=== PATIENT | female | born 1955 | race Caucasian/White ===

== ENCOUNTER 2018-10-25 08:46 | Inpatient (IN) | payer OTHER ==
--- NOTE | 2018-10-25 08:52 | EDPHY ---
General - History Smoking Status: Never smoked Time Seen by Provider: 10/25/18 08:52 Narrative: CLINICAL IMPRESSION: Distal femur fracture ASSESSMENT/PLAN: Patient is a 63-year-old female with a significant history of diabetes and hypertension who presents with complaint of left knee pain after sustaining a mechanical fall, brought in by EMS with concern for knee dislocation. Patient is nontoxic-appearing however is very uncomfortable appearing on arrival. Knee x-ray reveals displaced, comminuted distal femur fracture. There was no evidence of compartment syndrome and she was neurovascularly intact distally. Her history and physical examination is most consistent with comminuted, displaced distal femur fracture. Orthopedic surgery was consulted, spoke directly with Dr. Garcia. Patient will be admitted for surgical intervention , she will be admitted to the hospitalist service. I also spoke with MANAGER MASSAGE DEPARTMENT Bushra Betancourt, the patient will be admitted to Dr. Mcneal. Preop laboratory studies were obtained as well as a CXR and ECG; pending. ECG with no acute abnormalities or evidence of acute ischemia. As per the request of Dr. Garcia , the femur was reduced and placed in immobilization. CMS remained intact post splint placement. Repeat x-ray revealed better alignment however still displaced. No further skin tenting. DIFFERENTIAL DX: Knee injury after slipping on the ice including but not limited to fracture, ACL injury, contusion, muscular strain, and meniscus injury. ED COURSE: 910: Xrays reviewed by Dr. Jung 918: Case discussed with Orthopedic Surgery Dr. Garcia Procedure: Facture reduction. The left femur was reduced in the usual fashion without complications. Post reduction the patient's neurovascular exam is normal. The procedure was performed by myself and Dr. Jung. CHIEF COMPLAINT: Left knee pain HPI: Patient is a 63-year-old female with a history of diabetes and hypertension brought in by ambulance after sustaining a left knee injury. Patient reports she slipped on the ice, felt that her lower part of her left leg went [address] and the upper part of her left leg went the other way. She fell directly onto her knee and feels that it either dislocated her broke. Patient denies hitting her head, there was no loss of consciousness. She denies any neck or back pain. She denies any hip, ankle or foot pain. She denies any numbness or tingling of the extremity. No history of injury or arthroplasty to this knee. Denies any other complaints. Had coffee with powdered cream approximately an hour and half prior to arrival, last solid intake yesterday evening. PAST MEDICAL HISTORY: Hypertension, diabetes Family History: Noncontributory Social History: Denies illicit drug use ROS: A full 10 point review of systems was negative except for those mentioned in HPI. PHYSICAL EXAM: General Appearance: Obese, very uncomfortable appearing however not toxic- appearing. HEENT: Normocephalic, atraumatic. TMs are clear bilaterally no hemotympanum bilaterally. Oropharynx clear is no erythema or exudates, no tonsillar hypertrophy or asymmetry. Dentition without abnormality. Eyes: PERRLA, no acute vision change, nystagmus, swelling, discharge, pain or photosensitivity. Conjunctiva pink, no pallor or injection Neck: Supple, nontender, no lymphadenopathy, no midline pain, FROM, no meningismus. Respiratory: There are no retractions, lungs are clear to auscultation. Cardiac: Regular rate and rhythm, no murmurs or gallops. Gastrointestinal: Abdomen is soft, nontender, bowel sounds normal, no masses/ hernia, no rigidity, guarding or focal peritoneal findings. Skin: Warm, dry, no rashes, no nodules on palpation. Upper Extremities: Intact distal pulses, Full range of motion intact, no tenderness, no ecchymosis or edema Lower Extremities: Left thigh compartment is soft, distal femur deformity as well as tenderness to palpation in the generalized distal femur and knee. No open wounds however skin mildly tenting. Left calf is nontender. Left ankle has full range of motion is nontender. Left foot is nontender with full range of motion. Dorsalis pedis and posterior tibialis pulses are 2+. Right lower extremity unremarkable with full range of motion and nontender. MEDICAL DECISION MAKING: Patient was seen independently. Secondary supervising physician at time of evaluation was Dr. Jung. Diagnosis: Displaced, comminuted left distal femur fracture. New, requires workup Summary: See Assessment and Plan for summary of ED visit Clinical lab tests: Yes. Independent visualization of images, tracing, or specimens: Yes. Decision to obtain medical records or history from someone other than the patient: Yes, EMS Review / Summarize previous medical records: No Discussed patient with another provider: Yes, Dr. Jung Patient Progress: Stable, admit. (Tuyet English) 0930: I assessed this patient in conjunction with Samantha English, PAC. We reduced the patient's distal femur fracture at the request of Dr. Garcia, orthopedic surgeon. 50mg IV Ketamine administered after the reduction for pain control. Patient was placed in a knee immobilizer after the reduction. (Mandeep Jung) - Diagnostics Imaging Results: Imaging Impressions Knee X-Ray 10/25/18 08:52 Impression: Comminuted displaced angulated intraarticular distal left femur fracture. Chest X-Ray 10/25/18 09:13 Impression: No evidence for fat embolism. No contraindication to surgery identified. - Objective Vital Signs: Initial Vital Signs Temperature (C) 36.9 C 10/25/18 08:57 Heart Rate 90 10/25/18 08:57 Respiratory Rate 20 10/25/18 08:57 Blood Pressure 199/98 H 10/25/18 08:57 O2 Sat (%) 97 10/25/18 08:57 O2 Delivery Mode Nasal Cannula O2 (L/minute) 2 Allergies/Adverse Reactions: itraconazole [From Sporanox] Allergy (Intermediate, Verified 10/13/14 08:52) BODY RASH metformin Allergy (Intermediate, Verified 10/13/14 08:52) ABD CRAMPING Home Medications: Medication Instructions Recorded Lisinopril [Zestril 40 mg (*)] 40 mg PO DAILY 12/02/14 Insulin Regular Human [Humulin R 7 unit SC HS 10/25/18 100 units/ml (*)] Insulin Regular Human [Humulin R 10 unit SC BID@,12 10/25/18 100 units/ml (*)] Thyroid,Pork [[place] Thyroid] 150 mg PO DAILY 10/25/18 Laboratory Results: Laboratory Results 10/25/18 08:30 10/25/18 08:30 10/25/18 10/25/18 10/25/18 08:30 08:30 08:30 WBC 16.45 10^3/uL H 10^3/uL (3.80-9.50) RBC 4.89 10^6/uL 10^6/uL (4.18-5.33) Hgb 14.7 g/dL g/dL (12.6-16.3) Hct 43.6 % % (38.0-47.0) MCV 89.2 fL fL (81.5-99.8) MCH 30.1 pg pg (27.9-34.1) MCHC 33.7 g/dL g/dL (32.4-36.7) RDW 13.1 % % (11.5-15.2) Plt Count 174 10^3/uL 10^3/uL (150-400) MPV 9.9 fL fL (8.7-11.7) Neut % (Auto) 78.6 % H % (39.3-74.2) Lymph % (Auto) 15.2 % % (15.0-45.0) Glenn % (Auto) 4.9 % % (4.5-13.0) Eos % (Auto) 0.2 % L % (0.6-7.6) Baso % (Auto) 0.3 % % (0.3-1.7) Nucleat RBC Rel Count 0.0 % % (0.0-0.2) Absolute Neuts (auto) 12.94 10^3/uL H 10^3/uL (1.70-6.50) Absolute Lymphs (auto) 2.50 10^3/uL 10^3/uL (1.00-3.00) Absolute Monos (auto) 0.80 10^3/uL 10^3/uL (0.30-0.80) Absolute Eos (auto) 0.03 10^3/uL 10^3/uL (0.03-0.40) Absolute Basos (auto) 0.05 10^3/uL 10^3/uL (0.02-0.10) Absolute Nucleated RBC 0.00 10^3/uL 10^3/uL (0-0.01) Immature Gran % 0.8 % % (0.0-1.1) Immature Gran # 0.13 10^3/uL H 10^3/uL (0.00-0.10) PT 12.1 SEC SEC (12.0-15.0) INR 0.87 (0.83-1.16) APTT 28.4 SEC SEC (23.0-38.0) Sodium 139 mEq/L mEq/L (135-145) Potassium 3.6 mEq/L mEq/L (3.5-5.2) Chloride 100 mEq/L mEq/L (97-110) Carbon Dioxide 26 mEq/l mEq/l (22-31) Anion Gap 13 mEq/L mEq/L (6-14) BUN 16 mg/dL mg/dL (7-23) Creatinine 0.7 mg/dL mg/dL (0.6-1.0) Estimated GFR > 60 Glucose 200 mg/dL H mg/dL (70-100) Calcium 9.4 mg/dL mg/dL (8.5-10.4) Medications Given: Hydromorphone HCl (Dilaudid) 0.2 - 0.4 mg IVP Q4HRS PRN PRN Reason: Pain, Severe Unable to Take PO Stop: 11/04/18 09:48 Last Admin: 10/25/18 13:23 Dose: 0.4 mg Insulin Human Lispro (Humalog Lispro) 0 unit SC TIDMEAL RAY PRN Reason: Protocol Stop: 04/23/19 11:59 Last Admin: 10/25/18 12:36 Dose: 10 units Oxycodone/Acetaminophen (Percocet 5/325) 1 - 2 tab PO Q4HRS PRN PRN Reason: Pain, Severe Able to Take PO Stop: 11/04/18 09:48 Last Admin: 10/25/18 12:40 Dose: 2 tab Discontinued Medications Hydromorphone HCl (Dilaudid) 0.5 mg IVP EDNOW ONE Stop: 10/25/18 09:12 Last Admin: 10/25/18 09:15 Dose: 0.5 mg Ketamine HCl (Ketamine) 50 mg IVP EDNOW ONE Stop: 10/25/18 09:35 Last Admin: 10/25/18 09:34 Dose: 50 mg Ondansetron HCl (Zofran) 4 mg IVP EDNOW ONE Stop: 10/25/18 09:51 Last Admin: 10/25/18 09:51 Dose: 4 mg Departure - Departure Disposition: [facility] Inpatient Acute Clinical Impression: Fracture of distal femur Qualifiers: Encounter type: initial encounter Fracture type: closed Fracture morphology: unspecified fracture morphology Laterality: left Qualified Code(s): S72.402A - Unspecified fracture of lower end of left femur, initial encounter for closed fracture Condition: Good
[2018-10-25] MEDS ORDERED: HYDROmorphONE/DILAUDID 2 MG/ML INJ IVP ONE (09:11)
[2018-10-25] MEDS ORDERED: KETAMINE 200 MG/20 ML VIAL ONE (09:25)
[2018-10-25] MEDS ORDERED: KETAMINE 200 MG/20 ML VIAL IVP ONE (09:34)
[2018-10-25] MEDS ORDERED: ONDANSETRON 4 MG/2 ML VIAL IVP PRN ×3 (09:49→19:22)
[2018-10-25] MEDS ORDERED: ACETAMINOPHEN 325 MG TAB PO PRN (09:49)
[2018-10-25] MEDS ORDERED: ONDANSETRON 4 MG/2 ML VIAL IVP ONE (09:50)
[2018-10-25 09:53] LABS: PLATELET COUNT 174 10^3/uL (150-400)
[2018-10-25 10:06] LABS: INR 0.87 (0.83-1.16); PROTIME(PATIENT) 12.1 SEC (12.0-15.0)
[2018-10-25] MEDS ORDERED: MAGNESIUM HYDROXIDE 30 ML UDCUP PO PRN (11:12)
[2018-10-25] MEDS ORDERED: BISACODYL 10 MG SUPP PR PRN (11:12)
[2018-10-25] MEDS ORDERED: LACTULOSE 20 GM/30 ML UDCUP PO PRN (11:12)
[2018-10-25] MEDS ORDERED: POLYETHYLENE GLYCOL 3350 17 GM PKT PO PRN (11:12)
[2018-10-25] MEDS ORDERED: D50W 25 GM/50 ML SYR IVP PRN (11:12)
--- NOTE | 2018-10-25 12:00 | CPEKG ---
Test Reason : OPEN Blood Pressure : / mmHG Vent. Rate : 093 BPM Atrial Rate : 094 BPM P-R Int : 140 ms QRS Dur : 095 ms QT Int : 350 ms P-R-T Axes : 048 -23 -01 degrees QTc Int : 436 ms Sinus rhythm Borderline left axis deviation Low voltage, precordial leads Confirmed by Mandeep Jung ([id number]) on 10/25/2018 12:00:16 PM Referred By: Mandeep Jung Confirmed By:Mandeep Jung
[2018-10-25] MEDS: INSULIN LISPRO 100 UNIT/ML SC SCH ×2 (12:36→22:37)
[2018-10-25] MEDS: OXYCODONE/APAP 5/325 TAB PO PRN (12:40)
--- NOTE | 2018-10-25 12:48 | PDGENHP ---
History and Physical - Chief Complaint Mechanical fall with injury - History of Present Illness This is a 63 y/o female with history of hypertension and diabetes presenting to the emergency room after sustaining a mechanical fall with injury. This morning, she was walking outside when she slipped on ice. No preceding symptoms to contribute to fall. She landed hard on her left knee - imaging reveals left displaced angulated intraarticular distal comminuted femur fracture. It was reduced and immobilized by emergency room physicians upon request from orthopedic surgeon, Dr. Garcia. Denies chest pains, palpitations , lightheadedness, shortness of breath, nausea, vomiting, fevers and chills. Past Medical History 1. Diabetes 2. Hypertension 3. Hypothyroidism Past Surgical History 1. Hysterectomy 2. Colon resection 3. Right ankle fracture (~30 years ago; broke in 9 places) Social 1. Employed as a Watchstander in [place] 2. Smokes a pack of cigarettes/week. Smokes cannabis usually every day. Denies alcohol use. History Information - Allergies/Home Medication List Allergies/Adverse Reactions: itraconazole [From Sporanox] Allergy (Intermediate, Verified 10/13/14 08:52) BODY RASH metformin Allergy (Intermediate, Verified 10/13/14 08:52) ABD CRAMPING Home Medications: Lisinopril [Zestril 40 mg (*)] 40 mg PO DAILY 12/02/14 [Last Taken 10/25/18] Insulin Regular Human [Humulin R 100 units/ml (*)] 7 unit SC HS 10/25/18 [Last Taken 10/24/18] Insulin Regular Human [Humulin R 100 units/ml (*)] 10 unit SC BID@09,12 [Last Taken 10/25/18] Thyroid,Pork [[place] Thyroid] 150 mg PO DAILY 10/25/18 [Last Taken 10/25/18] I have personally reviewed and updated: family history, medical history, social history, surgical history Past Medical History: See HPI list - Surgical History Additional surgical history: See HPI list - Family History Positive for: cancer, diabetes type II, CAD Additional family history: Kidney disease - Social History Smoking Status: Current every day smoker Tobacco Use: Cigarettes Alcohol Use: None Drug Use: Marijuana Review of Systems Review of Systems: ROS: 10pt was reviewed & negative except for what was stated in HPI & below Constitutional: Reports: recent injury EENMT: Reports: no symptoms Cardiac: Reports: no symptoms Respiratory: Reports: no symptoms Gastrointestinal: Reports: no symptoms Genitourinary: Reports: no symptoms Muscolosketal: Reports: joint pain (L knee), joint swelling, muscle pain Skin: Reports: no symptoms Neurological: Reports: no symptoms Hematologic/Lymphatic: Reports: no symptoms Immunologic/Allergy: Reports: other (Itraconazole, metformin) Physical Exam Physical Exam: Lab data and imaging reviewed CXR: No fat embolism Knee x-ray: see HPI list EKG: SR, 93 bpm WBC: 16.45 BUN/Creatinine: 16/0.7 Temp Pulse Resp BP Pulse Ox 36.7 C 96 18 171/104 H 98 10/25/18 11:35 10/25/18 11:35 10/25/18 11:35 10/25/18 11:35 10/25/18 11:35 O2 (L/minute) 1 Constitutional: no apparent distress, appears nourished, uncomfortable Eyes: PERRL, anicteric sclera, EOMI Ears, Nose, Mouth, Throat: moist mucous membranes, hearing normal, ears appear normal, no oral mucosal ulcers Cardiovascular: regular rate and rhythym, no murmur, rub, or gallop, tachycardia , No edema Peripheral Pulses: 2+: dorsalis-pedis (R) (Radial 2+), dorsalis-pedis (L) ( Radial 2+) Respiratory: no respiratory distress, no rales or rhonchi, clear to auscultation Gastrointestinal: normoactive bowel sounds, soft, non-tender abdomen, no palpable masses Genitourinary: no bladder fullness, no bladder tenderness Skin: warm, normal color, no rashes or abrasions, no fluctuance, no induration, No mottled Musculoskeletal: joint effusion (L knee), pain with ROM Neurologic: AAOx3, sensation intact bilaterally, CN II-XII Intact Psychiatric: interacting appropriately, not anxious, not encephalopathic, thought process linear Lymph, Heme, Immunologic: no cervical LAD, no supraclavicular LAD Lab Data & Imaging Review 10/25/18 08:30 10/25/18 08:30 WBC 16.45 10^3/uL (3.80-9.50) H 10/25/18 08:30 RBC 4.89 10^6/uL (4.18-5.33) 10/25/18 08:30 Hgb 14.7 g/dL (12.6-16.3) 10/25/18 08:30 Hct 43.6 % (38.0-47.0) 10/25/18 08:30 MCV 89.2 fL (81.5-99.8) 10/25/18 08:30 MCH 30.1 pg (27.9-34.1) 10/25/18 08:30 MCHC 33.7 g/dL (32.4-36.7) 10/25/18 08:30 RDW 13.1 % (11.5-15.2) 10/25/18 08:30 Plt Count 174 10^3/uL (150-400) 10/25/18 08:30 MPV 9.9 fL (8.7-11.7) 10/25/18 08:30 Neut % (Auto) 78.6 % (39.3-74.2) H 10/25/18 08:30 Lymph % (Auto) 15.2 % (15.0-45.0) 10/25/18 08:30 Russell % (Auto) 4.9 % (4.5-13.0) 10/25/18 08:30 Eos % (Auto) 0.2 % (0.6-7.6) L 10/25/18 08:30 Baso % (Auto) 0.3 % (0.3-1.7) 10/25/18 08:30 Nucleat RBC Rel Count 0.0 % (0.0-0.2) 10/25/18 08:30 Absolute Neuts (auto) 12.94 10^3/uL (1.70-6.50) H 10/25/18 08:30 Absolute Lymphs (auto) 2.50 10^3/uL (1.00-3.00) 10/25/18 08:30 Absolute Monos (auto) 0.80 10^3/uL (0.30-0.80) 10/25/18 08:30 Absolute Eos (auto) 0.03 10^3/uL (0.03-0.40) 10/25/18 08:30 Absolute Basos (auto) 0.05 10^3/uL (0.02-0.10) 10/25/18 08:30 Absolute Nucleated RBC 0.00 10^3/uL (0-0.01) 10/25/18 08:30 Immature Gran % 0.8 % (0.0-1.1) 10/25/18 08:30 Immature Gran # 0.13 10^3/uL (0.00-0.10) H 10/25/18 08:30 PT 12.1 SEC (12.0-15.0) 10/25/18 08:30 INR 0.87 (0.83-1.16) 10/25/18 08:30 APTT 28.4 SEC (23.0-38.0) 10/25/18 08:30 Sodium 139 mEq/L (135-145) 10/25/18 08:30 Potassium 3.6 mEq/L (3.5-5.2) 10/25/18 08:30 Chloride 100 mEq/L (97-110) 10/25/18 08:30 Carbon Dioxide 26 mEq/l (22-31) 10/25/18 08:30 Anion Gap 13 mEq/L (6-14) 10/25/18 08:30 BUN 16 mg/dL (7-23) 10/25/18 08:30 Creatinine 0.7 mg/dL (0.6-1.0) 10/25/18 08:30 Estimated GFR > 60 10/25/18 08:30 Glucose 200 mg/dL (70-100) H 10/25/18 08:30 POC Glucose 349 mg/dL (70-100) H 10/25/18 12:13 Calcium 9.4 mg/dL (8.5-10.4) 10/25/18 08:30 Assessment & Plan Plan: 63 y/o female presenting with mechanical fall with injury requiring orthopedic interventions. 1. Acute fracture of distal left femur: has been reduced and immobilized in ED per request of Dr. Garcia. Leukocytosis more in relation to an acute reactive response instead of infectious. Afebrile. -Ortho consulted and aware. Dr. Garcia will perform surgical intervention later today. -NPO now -Pain management PO/IVP PRN -NWB LLE for now; will appreciate ortho recommendation for weight bearing status post-op -PT/OT to evaluate and treat -Bowel regimen 2. Hypertension: she reports taking her dose of lisinopril this morning. Continue to monitor BP. 3. Diabetes: on insulin at home. Initiated ISS here, glucose checks TID before meals. 4. Hypothyroidism: she reports taking her dose of [place] this morning. Will continue while she is here in the hospital. 5. Tobacco cessation: counseled pt. Diet: NPO, may ADAT post-operatively VTE ppx: SCDs, anti-coagulants per recommendation from orthopedics Code: Full Dispo: Admit to inpatient
[2018-10-25] MEDS ORDERED: ceFAZolin 2 GM/DEXTROSE 100 ML IV ONE (12:56)
--- NOTE | 2018-10-25 13:19 | GCON ---
[f rep st] CONSULTATION ORTHOPEDIC CONSULTATION DATE OF CONSULTATION: 10/25/2018 REASON FOR CONSULTATION: Left distal femur fracture. HPI: The patient is a 63-year-old female who had a slip and fall on the ice this morning, was lashell t by EMS to [facility] Emergency Department. X-rays were obtained, which showed a disp laced distal femur fracture which was reduced in the emergency department. She has been admitted to the hospitalist due to underlying medical conditions of hypertension and diabetes, and I saw her afte r her admission. Our tentative plan right now is for surgery later this afternoon. PRIOR MEDICAL HISTORY: Hypertension, diabetes. MEDICATIONS: Lisinopril, insulin, [place] Thyroid. ALLERGIES: No known drug allergies. SOCIAL HISTORY: She lives here in [place]. 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 Does not smoke. REVIEW OF SYSTEMS: No loss of consciousness. No shortness of breath. No chest pain. PHYSICAL EXAM: GENERAL: Alert and oriented x3. She is answering questions appropriately. VITAL SI GNS: Blood pressure is 171/104, heart rate 76, respiratory rate is 18, oxygen saturation is 98% on 1 L, temperature is 36.7. LABS: Show hemoglobin of 14.7, hematocrit of 43. Glucose is 349. Otherwi se, chemistries are normal. Coagulation values are within normal limits, as well. HEENT: Normoceph alic, atraumatic. Extraocular muscles are intact. NECK: Supple. There is no lymphadenopathy. No JVD. CHEST: Clear to auscultation. CARDIOVASCULAR: Regular rate and rhythm. ABDOMEN: Soft, nont ge, nondistended. EXTREMITIES: Focusing on the left leg, she has a knee immobilizer in place. H er skin is intact. Thigh compartment is slightly swollen, but soft. Lower extremity compartment is soft, as well. No calf tenderness. She has 5/5 ankle dorsiflexion and plantar flexion strength, 1+ dorsalis pedis and posterior tibial pulses. X-RAYS: Pre- and postreduction films show a comminuted distal femur fracture. There is a split thro ugh the intercondylar notch. ASSESSMENT: Comminuted distal femoral fracture, left, with displacement. PLAN: I recommend proceeding with an open reduction internal fixation of the distal femur fracture. She will be nonweightbearing for 6 weeks postoperatively. She will need 3 weeks of anticoagulation postoperatively, as well. We did talk about the possible need for a rehab setting after the acute ca re stay is over. She understands this. There is a slight chance that she may need a blood transfusi on as well during her admission, although we will do this case under tourniquet. I did explain she c ould lose enough blood from the fractured femur alone to require transfusion. She understands that. Total healing time of 4 to 6 months was also explained to her, and she understands that. We will ke ep her n.p.o., plan on surgery later this afternoon when there is OR availability. /[id number]/MODL
[2018-10-25] MEDS: HYDROmorphONE/DILAUDID 1 MG/ML INJ IVP PRN (13:23)
--- NOTE | 2018-10-25 13:27 | PDMN ---
Medical Necessity Medical necessity: MCG femur fx (sgy pend) pt fell on ice - acute fx of distal L femur - comminuted displaced angulated intra-articular distal femur fx - partially reduced in ED- req surgical intervention.
--- NOTE | 2018-10-25 13:42 | HOSPPROG ---
Hospitalist Progress Note Assessment/Plan: I have personally seen and evaluated patient. I agree with the assessment and plan as outlined by PALiz, in separate documentation. Objective: Vital Signs Temp Pulse Resp BP Pulse Ox 36.7 C 96 18 171/104 H 98 10/25/18 11:35 10/25/18 11:35 10/25/18 11:35 10/25/18 11:35 10/25/18 11:35 PT 12.1 SEC (12.0-15.0) 10/25/18 08:30 INR 0.87 (0.83-1.16) 10/25/18 08:30 ICD10 Worksheet Patient Problems: Problems Problem Status Onset Fracture of distal femur Acute
[2018-10-25] MEDS ORDERED: LR 1,000 ML IV ONE (17:32)
[2018-10-25] MEDS ORDERED: BUPIVACAINE/EPI 0.5% 30 ML SDV ONE (17:40)
[2018-10-25] MEDS ORDERED: POLYMYXIN B SULFATE 500,000 UNIT/10 ML SYR IRR ONE (17:42)
[2018-10-25] MEDS ORDERED: CEFAZOLIN 2 GM/DEXTROSE/100 ML BAG IV ONE (18:09)
[2018-10-25] MEDS ORDERED: MIDAZOLAM 2 MG/2 ML VIAL ONE (18:12)
[2018-10-25] MEDS ORDERED: MIDAZOLAM 2 MG/2 ML VIAL IVP ONE (18:13)
--- NOTE | 2018-10-25 18:13 | PDANEPAE ---
ANE History of Present Illness left distal femur fracture ANE Past Medical History - Cardiovascular History Hx Hypertension: No Hx Arrhythmias: No Hx Chest Pain: No Hx Coronary Artery / Peripheral Vascular Disease: No Hx CHF / Valvular Disease: No Hx Palpitations: No - Pulmonary History Hx COPD: No Hx Recent Upper Respiratory Infection: No Hx Oxygen in Use at Home: No Hx Sleep Apnea: Yes Sleep Apnea Screening Result - Last Documented: Positive - Endocrine History Hx Diabetes: Yes Hypothyroid: Yes Hyperthyroid: No Obesity: severe - Renal History Hx Renal Disorders: No - Liver History Hx Hepatic Disorders: No ANE Review of Systems Review of systems is: negative Review of Systems: - Exercise capacity Exercise capacity: >=4 METS ANE Patient History - Allergies Allergies/Adverse Reactions: itraconazole [From Sporanox] Allergy (Intermediate, Verified 10/13/14 08:52) BODY RASH metformin Allergy (Intermediate, Verified 10/13/14 08:52) ABD CRAMPING - Home Medications Home medications: home medication list seen and reviewed Home Medications: Lisinopril [Zestril 40 mg (*)] 40 mg PO DAILY 12/02/14 [Last Taken 10/25/18] Insulin Regular Human [Humulin R 100 units/ml (*)] 7 unit SC HS 10/25/18 [Last Taken 10/24/18] Insulin Regular Human [Humulin R 100 units/ml (*)] 10 unit SC BID@09,12 [Last Taken 10/25/18] Thyroid,Pork [[place] Thyroid] 150 mg PO DAILY 10/25/18 [Last Taken 10/25/18] - NPO status NPO Status: no food or drink >8 hours NPO Since - Liquids (Date): 10/25/18 NPO Since - Liquids (Time): 07:00 NPO Since - Solids (Date): 10/24/18 NPO Since - Solids (Time): 20:30 - Anes Hx Anes Hx: no prior problems - Smoking Hx Smoking Status: Current every day smoker - Alcohol Use Alcohol Use: None - Family Anes Hx Family Anes Hx: none ANE Labs/Vital Signs - Labs Result Diagrams: 10/25/18 08:30 10/25/18 08:30 - Vital Signs Vital Signs: reviewed preoperatively; see RN documention for details Blood Pressure: 139/87 Heart Rate: 105 Respiratory Rate: 26 O2 Sat (%): 94 Height: 160.02 cm Weight: 99.79 kg ANE Physical Exam - Airway Neck exam: FROM Mallampati Score: Class 2 Mouth exam: normal dental/mouth exam - Pulmonary Pulmonary: no respiratory distress - Cardiovascular Cardiovascular: regular rate and rhythym - ASA Status ASA Status: III, E ANE Anesthesia Plan Anesthesia Plan: general endotracheal anesthesia
[2018-10-25] MEDS ORDERED: HYDROmorphONE/DILAUDID 2 MG/ML INJ ONE (18:37)
[2018-10-25] MEDS ORDERED: fentaNYL 100 MCG/2 ML INJ ONE (18:40)
[2018-10-25] MEDS ORDERED: ROCURONIUM 50 MG/5 ML VIAL ONE (18:43)
[2018-10-25] MEDS ORDERED: DEXAMETHASONE 4 MG/ML VIAL ONE (18:43)
[2018-10-25] MEDS ORDERED: ONDANSETRON 4 MG/2 ML VIAL ONE (18:44)
[2018-10-25] MEDS ORDERED: BACITRACIN 50,000 UNITS/10 ML SYR IRR ONE (18:57)
[2018-10-25] MEDS ORDERED: PHENYLEPHRINE HCL 100 MCG/ML SYR IVP PRN (19:22)
[2018-10-25] MEDS ORDERED: PROMETHAZINE HCL 25 MG/ML INJ IVP PRN (19:22)
[2018-10-25] MEDS ORDERED: LABETALOL HCL 5 MG/ML 20 ML MDV IVP PRN (19:22)
[2018-10-25] MEDS ORDERED: oxyCODONE IR 5 MG TAB PO PRN (19:22)
[2018-10-25] MEDS ORDERED: fentaNYL 100 MCG/2 ML INJ IVP PRN (19:22)
[2018-10-25] MEDS ORDERED: LR 500 ML IV PRN (19:22)
[2018-10-25] MEDS ORDERED: METOCLOPRAMIDE 10 MG/2 ML VIAL IVP PRN (19:22)
[2018-10-25] MEDS ORDERED: ACETAMINOPHEN 500 MG TAB PO PRN (19:22)
[2018-10-25] MEDS ORDERED: HYDROmorphONE/DILAUDID 2 MG/ML INJ IVP PRN (19:22)
[2018-10-25] MEDS ORDERED: MEPERIDINE 25 MG/0.5 ML AMP IVP PRN (19:22)
[2018-10-25] MEDS ORDERED: ALBUTEROL 3 ML DEYVIAL IH PRN (19:22)
[2018-10-25] MEDS ORDERED: DEXAMETHASONE 4 MG/ML VIAL IVP PRN (19:22)
[2018-10-25] MEDS ORDERED: NALOXONE HCL 0.4 MG/ML INJ IVP PRN (19:22)
[2018-10-25] MEDS ORDERED: GLYCOPYRROLATE 0.2 MG/1 ML VIAL ONE ×2 (19:25)
[2018-10-25] MEDS ORDERED: NEOSTIGMINE METHYLSULFATE 5 MG/5 ML SYR ONE (19:25)
[2018-10-25] MEDS ORDERED: TEMAZEPAM 15 MG CAP PO PRN (19:48)
--- NOTE | 2018-10-25 19:54 | POSTOPPROG ---
Post Op Note Date of Operation: 10/25/18 Surgeon: Asim Garcia It Help Desk Associate: tra carrion Anesthesiologist: maciej Anesthesia: GET(General Endotracheal) Pre-op Diagnosis: displaced femur fx Left Post-op Diagnosis: same Procedure: ORIF distal femur LT Findings: displaced comminuted distal femur fx Inf/Abcess present in the surg proc area at time of surgery?: No EBL: 50-100 Complications: none
[2018-10-25] MEDS ORDERED: LR 1,000 ML IV SCH (20:00)
[2018-10-25] MEDS ORDERED: METOPROLOL TARTRATE 5 MG/5 ML INJ ONE (20:14)
[2018-10-25] MEDS ORDERED: METOPROLOL TARTRATE 5 MG/5 ML INJ IVP PRN (20:25)
--- NOTE | 2018-10-25 20:29 | POSTANESTH ---
Post Anesthetic Evaluation Cardiovascular Status: Normal, Stable Respiratory Status: Normal, Stable Level of Consciousness/Mental Status: Can Participate in Eval Pain Control: Adequate, Prn Tx Ordered Nausea/Vomiting Control: Adequate, Prn Tx Ordered Complications Possibly Related to Anesthesia: None Noted
[2018-10-25] MEDS ORDERED: INSULIN LISPRO 100 UNIT/ML SC ONE (22:24)
--- NOTE | 2018-10-25 22:36 | GOP ---
[f rep st] OPERATIVE REPORT DATE OF OPERATION: 10/25/2018 SURGEON: Asim Garcia MD COUNSELOR AID: Ryne Davila, RESEARCH QUALITY ASSURANCE SPECIALIST, [facility]. ANESTHESIA: General. ANESTHESIOLOGIST: Dr. Chan. PREOPERATIVE DIAGNOSIS: Displaced distal femur fracture, left. POSTOPERATIVE DIAGNOSIS: Displaced distal femur fracture, left. PROCEDURE PERFORMED: Open reduction and internal fixation, distal femur. FINDINGS: ESTIMATED BLOOD LOSS: 100 mL. INDICATIONS: The patient is a 63-year-old female who slipped and fell on the ice today and sustained a displaced distal femur fracture. She was admitted to the hospital, brought to the operating room for fixation of her fracture this evening. DESCRIPTION OF PROCEDURE: After appropriate informed consent was obtained, the patient was taken to the operating room, placed supine on the operating table. Time-out was performed. The correct site was identified, matched with radiographs available in the room. She received 2 g of Ancef preoperati vely. Following the induction of general endotracheal tube anesthesia, she was positioned on a radio lucent table. All bony prominences well padded. Given to her body habitus, we could not use a tourn iquet. I made a standard lateral incision. Soft tissues were carefully dissected. Bleeding was con trolled with electrocautery. The IT band was split down to the femoral condyle. Retractors were chad suzan around the anterior aspect of the femur and in the knee. She had a depressed piece in the trochl ear groove. This was elevated up with elevators. There was a split down the intercondylar notch wit h a large medial fragment, lateral fragment, and small posterior fragment. I was able to reduce thes e by pulling traction on the leg and externally rotating it, held in place with a bone-holding forcep s. We then placed a precontoured distal femoral plate and using guidewires, held it in place, also c atching the fragments and reducing them nicely. Reduction was confirmed with both AP and lateral flu oroscopic images. We then placed a series of locking screws after pre-drilling the holes in the dist al condyles, which reduced the condyles nicely. We then continued locking screws up the shaft with g ood fixation of the plate to the bone. Final imaging was obtained, which showed satisfactory reducti on of the fracture both in AP and lateral planes. Examination under anesthesia revealed a stable kne e to varus and valgus stress testing. The wound was irrigated. Deep layer was closed with 0 Vicryl, superficial layer was closed with 0 Vicryl, skin was closed with dasha. I instilled 30 mL of 0.5% Marcaine with epinephrine around the incision. Sterile dressing was applied. Knee immobilizer was applied. The patient was awakened from anesthesia, taken to the recovery room in satisfactory condit ion. There were no immediate intraoperative complications. IMPLANTS USED: Synthes distal femoral locking plate. COMPLICATIONS: None. DRAINS: None. /[id number]/MODL
[2018-10-25] MEDS: SENNOSIDES/DOCUSATE SODIUM TAB PO SCH (22:38)
[2018-10-26] MEDS: ceFAZolin 2 GM/DEXTROSE 100 ML IV SCH ×2 (01:45→10:31)
[2018-10-26] MEDS: OXYCODONE/APAP 5/325 TAB PO PRN ×4 (01:55→18:26)
[2018-10-26] MEDS: HYDROmorphONE/DILAUDID 1 MG/ML INJ IVP PRN (01:55)
[2018-10-26] MEDS: SENNOSIDES/DOCUSATE SODIUM TAB PO SCH ×2 (08:57→20:20)
[2018-10-26] MEDS: INSULIN LISPRO 100 UNIT/ML SC SCH ×2 (08:59→14:15)
[2018-10-26] MEDS ORDERED: LISINOPRIL 40 MG TAB PO SCH (09:00)
[2018-10-26] MEDS: LISINOPRIL 40 MG TAB PO SCH (09:01)
--- NOTE | 2018-10-26 10:16 | ASMTCMCOM ---
CM Note CM Note Notes: Pt admitted to hospital after fall on ice, resulting in a femur fracture. Pt is otherwise independent, PT/OT to eval. DC Plan: TBD Date Signed: 10/26/2018 10:16 AM Electronically Signed By:Vidhi Acosta RN
[2018-10-26] MEDS: THYROID 60 MG TAB PO SCH (10:28)
--- NOTE | 2018-10-26 11:53 | SOAPPROG ---
SOAP Progress Note Assessment/Plan: Assessment: Jazzy is POD#1 s/p ORIF left distal femur fracture. She is doing well and complains of moderate pain which is controlled with pain medication. PE: Dressing clean and dry. Knee immobilizer in place. NV intact LLE. Calf soft to compression without pain Plan: [facility] Home PT/OT if therapy suggests. Aspirin 325 BID for DVT prophylaxis. NWB LLE x 6 weeks. Knee immobilizer to remain in place aside from hygiene for 2 weeks. No ROM of the knee x 2 weeks. Follow up in office in 14 days for repeat evaluation, wound check, and radiographs. 10/26/18 11:49 Objective: Vital Signs Temp Pulse Resp BP Pulse Ox 37.1 C 107 H 17 122/73 H 96 10/26/18 07:41 10/26/18 07:41 10/26/18 07:41 10/26/18 09:01 10/26/18 07:41 Laboratory Results 10/26/18 04:52 10/25/18 10/26/18 10/27/18 05:59 05:59 05:59 Intake Total 2200 Output Total 550 400 Balance 1650 -400 PT 12.1 SEC (12.0-15.0) 10/25/18 08:30 INR 0.87 (0.83-1.16) 10/25/18 08:30 ICD10 Worksheet Patient Problems: Problems Problem Status Onset Fracture of distal femur Acute
[2018-10-26] MEDS: INSULIN LISPRO 100 UNIT/1 ML VIAL HIGH SC SCH ×2 (12:58→18:22)
--- NOTE | 2018-10-26 14:23 | HOSPPROG ---
Hospitalist Progress Note Assessment/Plan: Jazzy is a 63 y/o female w htn, dm who sustained a fall when slipping on the ice. She sustained a left displaced femur fracture. Was seen by Dr Garcia and had surgery w Dr Garcia on Oct 26. First encounter, chart reviewed. * Acute fracture of distal left femur -reduced and immobilized in ED -NWB to LLE x 6 weeks, knee immobilizer to stay in place -f/u w Dr Garcia in 2 weeks *pain due to this -pain is more spasms in nature-trial of Robaxin * Hypertension -Lisinopril * Diabetes -on concentrated insulin at home (she is concerned about taking this while in the hospital) -glucoses are high, changed to high dose sliding scale, added Lantus to start tonight * Hypothyroidism - [place] * Nicotine dependence -recommended cessation *Cannibis use *obesity w a BMI of 39 *plan: CM to discuss w her about SNF vs going to stay w friends, may benefit from a SNF to have the access of PT and OT to help with balance and to remain NWB. Subjective: Cat said her leg is aching and has spasms. Objective: Vital Signs Temp Pulse Resp BP Pulse Ox 37.1 C 99 18 122/73 H 97 10/26/18 12:00 10/26/18 12:00 10/26/18 12:00 10/26/18 12:00 10/26/18 12:00 Laboratory Results 10/26/18 04:52 10/25/18 10/26/18 10/27/18 05:59 05:59 05:59 Intake Total 2200 Output Total 550 400 Balance 1650 -400 PT 12.1 SEC (12.0-15.0) 10/25/18 08:30 INR 0.87 (0.83-1.16) 10/25/18 08:30 - Physical Exam Constitutional: obese, uncomfortable, No not in pain Eyes: PERRL Ears, Nose, Mouth, Throat: hearing normal Cardiovascular: regular rate and rhythym Respiratory: no respiratory distress Gastrointestinal: normoactive bowel sounds Skin: warm Musculoskeletal: generalized weakness Neurologic: AAOx3 Psychiatric: interacting appropriately ICD10 Worksheet Patient Problems: Problems Problem Status Onset Fracture of distal femur Acute
[2018-10-26] MEDS: METHOCARBAMOL 750 MG TAB PO PRN ×2 (15:34→20:20)
[2018-10-26] MEDS: ASPIRIN 325 MG TAB PO SCH (20:22)
[2018-10-26] MEDS ORDERED: INSULIN GLARGINE 100 UNITS/ML UNIT SC SCH (21:00)
[2018-10-27] MEDS: OXYCODONE/APAP 5/325 TAB PO PRN ×2 (04:34→08:29)
[2018-10-27] MEDS: METHOCARBAMOL 750 MG TAB PO PRN ×3 (07:55→17:38)
[2018-10-27] MEDS: LISINOPRIL 40 MG TAB PO SCH (07:56)
[2018-10-27] MEDS: ASPIRIN 325 MG TAB PO SCH ×2 (07:56→21:22)
[2018-10-27] MEDS: SENNOSIDES/DOCUSATE SODIUM TAB PO SCH ×2 (08:00→21:23)
[2018-10-27] MEDS: INSULIN LISPRO 100 UNIT/1 ML VIAL HIGH SC SCH ×3 (08:28→17:40)
[2018-10-27] MEDS ORDERED: INSULIN GLARGINE 100 UNITS/ML UNIT SC SCH (08:40)
--- NOTE | 2018-10-27 09:50 | HOSPPROG ---
Hospitalist Progress Note Assessment/Plan: Jazzy is a 63 y/o female w htn, dm who sustained a fall when slipping on the ice. She sustained a left displaced femur fracture. Was seen by Dr Garcia and had surgery w Dr Garcia on Oct 26. * Acute fracture of distal left femur -s/p ORIF of left femur -reduced and immobilized in ED -NWB to LLE x 6 weeks, knee immobilizer to stay in place -f/u w Dr Garcia in 2 weeks *pain due to this -Robaxin helped *anemia -post op setting * Hypertension -Lisinopril * Diabetes -on concentrated insulin at home (she is concerned about taking this while in the hospital) -glucoses are high, changed to high dose sliding scale, will increase Lantus dose and add an extra 3 units w each meal * Hypothyroidism - [place] * Nicotine dependence -recommended cessation *Cannibis use *obesity w a BMI of 39 *plan: CM to talk w her about [facility]. She would benefit from rehab since she lives alone. Subjective: Cat said she had some pain w her leg last night. Objective: Vital Signs Temp Pulse Resp BP Pulse Ox 36.8 C 104 H 14 121/68 H 96 10/27/18 08:00 10/27/18 08:14 10/27/18 08:14 10/27/18 08:14 10/27/18 08:14 Laboratory Results 10/27/18 04:55 10/26/18 10/27/18 10/28/18 05:59 05:59 05:59 Intake Total 2200 1200 Output Total 550 3250 Balance 1650 -2050 PT 12.1 SEC (12.0-15.0) 10/25/18 08:30 INR 0.87 (0.83-1.16) 10/25/18 08:30 - Physical Exam Constitutional: obese, uncomfortable Eyes: PERRL Ears, Nose, Mouth, Throat: hearing normal Cardiovascular: regular rate and rhythym Respiratory: no respiratory distress, reduced air movement Skin: warm Musculoskeletal: generalized weakness Neurologic: AAOx3 Psychiatric: interacting appropriately ICD10 Worksheet Patient Problems: Problems Problem Status Onset Fracture of distal femur Acute
[2018-10-27] MEDS: oxyCODONE IR 5 MG TAB PO PRN ×4 (11:20→21:34)
[2018-10-27] MEDS: THYROID 60 MG TAB PO SCH (11:22)
--- NOTE | 2018-10-27 14:53 | SOAPPROG ---
SOAP Progress Note Assessment/Plan: Assessment: Jazzy is POD#2 s/p ORIF left distal femur fracture. She is doing well and complains of moderate pain which is controlled with pain medication. PE: Dressing clean and dry. Knee immobilizer in place. NV intact LLE. Calf soft to compression without pain. Plan: Plan to discharge to SNF due to difficulty ambulating. Aspirin 325 BID for DVT prophylaxis. NWB LLE x 6 weeks. Knee immobilizer to remain in place aside from hygiene for 2 weeks. No ROM of the knee x 2 weeks. Please change dressing to Mepilex dressing. Follow up in office in 14 days for repeat evaluation, wound check, and radiographs. 10/26/18 11:49 10/27/18 14:52 Objective: Vital Signs Temp Pulse Resp BP Pulse Ox 37.0 C 99 14 108/69 96 10/27/18 11:48 10/27/18 11:48 10/27/18 11:48 10/27/18 11:48 10/27/18 11:48 Laboratory Results 10/27/18 04:55 10/26/18 10/27/18 10/28/18 05:59 05:59 05:59 Intake Total 2200 1200 Output Total 550 3250 500 Balance 1650 -2050 -500 PT 12.1 SEC (12.0-15.0) 10/25/18 08:30 INR 0.87 (0.83-1.16) 10/25/18 08:30 ICD10 Worksheet Patient Problems: Problems Problem Status Onset Fracture of distal femur Acute
--- NOTE | 2018-10-27 15:18 | ASMTCMCOM ---
CM Note CM Note Notes: Met with pt re dc poc, PT/OT recommend rehab. Pt is agreeable and would like a referral sent to [facility] in [place] because her parents live there. CM faxed referral, they are checking pt's insurance and will have a bed available tomorrow. DC Plan: [facility] pending insurance auth Date Signed: 10/27/2018 03:17 PM Electronically Signed By:Vidhi Acosta RN
[2018-10-27] MEDS: INSULIN LISPRO 100 UNIT/ML SC SCH (17:39)
[2018-10-27] MEDS ORDERED: INSULIN LISPRO 100 UNIT/ML SC SCH (18:00)
[2018-10-27] MEDS: ONDANSETRON DISINTEGRATING 4 MG TAB PO PRN (19:08)
[2018-10-28] MEDS: oxyCODONE IR 5 MG TAB PO PRN ×4 (03:43→21:50)
[2018-10-28] MEDS: LISINOPRIL 40 MG TAB PO SCH (09:24)
[2018-10-28] MEDS: SENNOSIDES/DOCUSATE SODIUM TAB PO SCH ×2 (09:25→21:44)
[2018-10-28] MEDS: ASPIRIN 325 MG TAB PO SCH ×2 (09:25→21:45)
[2018-10-28] MEDS: THYROID 60 MG TAB PO SCH (09:25)
[2018-10-28] MEDS: INSULIN LISPRO 100 UNIT/ML SC SCH ×3 (09:26→17:56)
[2018-10-28] MEDS: INSULIN LISPRO 100 UNIT/1 ML VIAL HIGH SC SCH ×3 (09:28→17:55)
[2018-10-28] MEDS ORDERED: INSULIN GLARGINE 100 UNITS/ML UNIT SC SCH ×2 (12:53→13:08)
--- NOTE | 2018-10-28 13:10 | HOSPPROG ---
Hospitalist Progress Note Assessment/Plan: Jazzy is a 63 y/o female w htn, dm who sustained a fall when slipping on the ice. She sustained a left displaced femur fracture. Was seen by Dr Garcia and had surgery w Dr Garcia on Oct 26. * Acute fracture of distal left femur -s/p ORIF of left femur -reduced and immobilized in ED -NWB to LLE x 6 weeks, knee immobilizer to stay in place -f/u w Dr Garcia in 2 weeks *pain due to this -Robaxin helped *anemia -post op setting * Hypertension -Lisinopril * Diabetes, uncontrolled -on concentrated insulin at home (she is concerned about taking this while in the hospital) -says her glucose usually run in the 100's in the morning -glucoses are high, changed to high dose sliding scale, will increase Lantus dose to 40 units and add an extra 5 units w each meal -check an A1C * Hypothyroidism - [place] * Nicotine dependence -recommended cessation *Cannibis use *obesity w a BMI of 39 *plan: to [facility] once glucoses are a bit better managed Subjective: Cat's pain is overall well managed, not very hungry. Objective: Vital Signs Temp Pulse Resp BP Pulse Ox 36.8 C 104 H 14 128/86 H 94 10/28/18 11:41 10/28/18 11:41 10/28/18 11:41 10/28/18 11:41 10/28/18 11:41 Laboratory Results 10/27/18 04:55 10/27/18 10/28/18 10/29/18 05:59 05:59 05:59 Intake Total 1200 350 322 Output Total 3250 1650 Balance -2049 -1299 322 PT 12.1 SEC (12.0-15.0) 10/25/18 08:30 INR 0.87 (0.83-1.16) 10/25/18 08:30 - Physical Exam Constitutional: obese, uncomfortable Eyes: PERRL Ears, Nose, Mouth, Throat: hearing normal Cardiovascular: regular rate and rhythym Respiratory: no respiratory distress Skin: warm Musculoskeletal: generalized weakness Neurologic: AAOx3 Psychiatric: interacting appropriately ICD10 Worksheet Patient Problems: Problems Problem Status Onset Fracture of distal femur Acute
--- NOTE | 2018-10-28 14:08 | ASMTCMCOM ---
BRE Note CM Note Notes: [facility], insurance auth recieved. Unfortunately, pt's blood sugars are too high today. Possible dc tomorrow. CM notified Nathalie, hopefully has bed tomorrow. DC Plan: [facility] Date Signed: 10/28/2018 02:07 PM Electronically Signed By:Vidhi Acosta RN
[2018-10-28] MEDS: METHOCARBAMOL 750 MG TAB PO PRN ×2 (14:58→21:50)
[2018-10-29] MEDS: oxyCODONE IR 5 MG TAB PO PRN ×2 (05:13→13:34)
[2018-10-29 06:38] LABS: PLATELET COUNT 147 10^3/uL (150-400)
[2018-10-29] MEDS: ONDANSETRON DISINTEGRATING 4 MG TAB PO PRN (08:32)
[2018-10-29] MEDS: INSULIN LISPRO 100 UNIT/ML SC SCH ×2 (08:38→12:31)
[2018-10-29] MEDS: INSULIN LISPRO 100 UNIT/1 ML VIAL HIGH SC SCH ×2 (08:38→12:30)
[2018-10-29] MEDS: LISINOPRIL 40 MG TAB PO SCH (08:41)
[2018-10-29] MEDS: METHOCARBAMOL 750 MG TAB PO PRN (08:41)
[2018-10-29] MEDS: THYROID 60 MG TAB PO SCH (08:42)
[2018-10-29] MEDS: SENNOSIDES/DOCUSATE SODIUM TAB PO SCH (08:42)
[2018-10-29] MEDS: ASPIRIN 325 MG TAB PO SCH (08:42)
--- NOTE | 2018-10-29 09:04 | HOSPPROG ---
Hospitalist Progress Note Assessment/Plan: Jazzy is a 63 y/o female w htn, dm who sustained a fall when slipping on the ice. She sustained a left displaced femur fracture. Was seen by Dr Garcia and had surgery w Dr Garcia on Oct 26. * Acute fracture of distal left femur -s/p ORIF of left femur -reduced and immobilized in ED -NWB to LLE x 6 weeks, knee immobilizer to stay in place -f/u w Dr Garcia in 2 weeks *pain due to this -Robaxin helped *anemia -post op setting * Hypertension -Lisinopril * Diabetes, uncontrolled -on concentrated insulin at home (she is concerned about taking this while in the hospital) -glucoses are improved -A1c pending * Hypothyroidism - [place] * Nicotine dependence -recommended cessation *Cannibis use *obesity w a BMI of 39 *dvt prophylaxis: asa bid-per orthopedics *plan: dc to [facility] Subjective: Cat is tired this morning, having some pain in her left leg Objective: Vital Signs Temp Pulse Resp BP Pulse Ox 36.7 C 85 16 148/86 H 96 10/29/18 08:00 10/29/18 08:00 10/29/18 08:00 10/29/18 08:41 10/29/18 08:00 Laboratory Results 10/29/18 05:56 10/28/18 10/29/18 10/30/18 05:59 05:59 05:59 Intake Total 350 322 Output Total 1650 350 Balance -1300 -28 PT 12.1 SEC (12.0-15.0) 10/25/18 08:30 INR 0.87 (0.83-1.16) 10/25/18 08:30 - Physical Exam Constitutional: obese, uncomfortable, No not in pain Eyes: PERRL Ears, Nose, Mouth, Throat: hearing normal Cardiovascular: regular rate and rhythym Respiratory: no respiratory distress, reduced air movement Skin: warm, other (ecchymosis seen on the left adductor area at proximal end, has a splint on her leg) Musculoskeletal: generalized weakness Neurologic: AAOx3 Psychiatric: interacting appropriately ICD10 Worksheet Patient Problems: Problems Problem Status Onset Fracture of distal femur Acute
--- NOTE | 2018-10-29 09:47 | PDIAF ---
- Diagnosis Diagnosis: left femur fx s/p orif, DM 2 Code Status: Full Code - Medication Management Discharge Medications: electronically signed and located in the Home Medication List. PICC Care - Routine: N/A - Orders Services needed: Physical Therapy, Occupational Therapy Oxygen: 1-2 liters prn Diet Recommendation: ADA 2000 consistent carb Diet Texture: Regular Texture Diet Additional Instructions: Aspirin 325 BID for DVT prophylaxis. NWB LLE x 6 weeks. Knee immobilizer to remain in place aside from hygiene for 2 weeks. No ROM of the knee x 2 weeks. Follow up in 14 days for repeat evaluation #[phone]. check glucoses QAC and QHS sliding scale at hospital -give Insulin Lispro 5 units SC with each meal in addition to the sliding scale -glucose 150-200 = 4 units lispro -glucose 201-250 = 8 units lispro -glucose 251-300= 12 units lispro -glucose 301-350= 16 units lispro call MD if > 350 also, she is on Lantus 40 units patient usually takes concentrated insulin-can resume this and dc the above once her glucoses stabilize - Labs/Radiology BMP Date: 11/04/18 HCT/HGB Date: 11/04/18 - Follow Up Care Current Providers and Referrals: Asim Garcia MD [Medical Doctor] - Patient,NotPresent [Unknown] - As per Instructions
--- NOTE | 2018-10-29 10:16 | GDS ---
[f rep st] DISCHARGE SUMMARY DISCHARGE DIAGNOSES: 1. Acute fracture of the distal left femur. 2. Pain due to this. 3. Anemia. 4. Hypertension. 5. Uncontrolled diabetes. 6. Hypothyroidism. 7. Nicotine dependence. 8. Cannabis use. 9. Obesity with a body mass index of 39. CONSULTATION: Dr. Asim Garcia HISTORY OF PRESENT ILLNESS: Briefly, the patient is a 63-year-old female who has hypertension, who sustained a fall when slipping on the ice. She had a left displaced femur fracture. She had surgery on October 16, 2018. She has done quite well with surgery. She will go to [facility] for strengthening, and then stay with a friend of hers. HOSPITAL COURSE: 1. Acute fracture of the distal left femur. She is status post ORIF of the left femur. She is to be nonweightbearing to left lower extremity x6 weeks. The knee immobilizer is to stay in place. 2. Pain due to this, Robaxin to help significantly. 3. Anemia. This is in the postoperative setting. 4. Hypertension. Lisinopril. 5. Diabetes. Her glucoses have been uncontrolled, Lantus was added, with improvement. In addition, she is on high dose sliding scale plus 5 units of lispro. These can be discontinued once her glucose is improved. Her A1c is pending. On discharge from [facility], she can resume her own home insulin regimen. 6. Hypothyroidism, on [place] Thyroid. 7. Nicotine dependence. Recommend cessation. 8. Cannabis use. 9. Obesity, with a body mass index of 39. DISCHARGE CONDITION: Stable. Blood pressure is 148/86, heart rate of 85, respiratory rate is 16, O2 saturations on 2 L are 96%. Temperature 36.7 Celsius. MEDICATIONS AT DISCHARGE: Please see the EMR. DISCHARGE INSTRUCTIONS: 1. Aspirin twice daily for DVT prophylaxis. 2. Nonweightbearing to her left lower extremity for 6 weeks. 3. To keep the knee immobilizer in place, aside from hygiene. 4. No range of motion of the knee x2 weeks. 5. Further followup with Dr. Garcia. 6. To continue what we have done in the hospital to get better glucose control , to check her glucoses before meals and at bedtime. I have written out in detail the sliding scale instructions. Greater than 30 minutes discharging and coordinating the patient's care. /[id number]/MODL MTDD
[2018-10-29 12:15] VITALS: BP 122/65
--- NOTE | 2018-10-29 13:09 | ASMTLACE ---
LACE Length of stay for Answers: 4-6 days current admission Acuity / Level of Answers: Yes Care: Did the patient have an inpatient admission? Comorbidities - select Answers: Diabetes (uncontrolled or all that apply controlled) Other Notes: HTN; Hypothyroid # of Emergency department Answers: 1-2 visits in the last 6 months Score: 10 Date Signed: 10/29/2018 01:09 PM Electronically Signed By:Adriana Patel
--- NOTE | 2018-10-29 14:40 | ASDISCHSUM ---
Discharge Information Plan Status:SNF Medically Cleared to Leave:10/28/2018 Discharge Date:10/29/2018 02:34 PM CM D/C Disposition:Care Home Facility ADT D/C Disposition:Care Home Facility Projected Discharge Date:10/28/2018 11:00 AM Transportation at D/C:Wheelchair Van Discharge Delay Reason: Follow-Up Date:10/28/2018 11:00 AM Discharge Slot: Final Diagnosis:Femur Fracture Placement Information Referral Type:*Fpc/SNF Referral ID:[id number] Provider Name:Aleida Nava Address 1:[address] Phone Number: Address 2: Fax Number: City:[place] Selection Factors: State:[place] Patient Contact Information Contact Name:SHOBHA Relationship:Father Address:[address] Work Phone: City:[place] Alternate Phone: State/Zip Code:[place] [address] Email: Financial Information Financial Class:HMO and PPO Plans Primary Plan Desc:[employer] Primary Plan Number:[id number] Secondary Plan Desc: Secondary Plan Number: Assessment Information LACE LACE Length of stay for Answers: 4-6 days current admission Acuity / Level of Answers: Yes Care: Did the patient have an inpatient admission? Comorbidities - select Answers: Diabetes (uncontrolled or all that apply controlled) Other Notes: HTN; Hypothyroid # of Emergency department Answers: 1-2 visits in the last 6 months Score: 10 Date Signed: 10/29/2018 01:09 PM Electronically Signed By:Adriana Patel [facility] CM Progress Note CM Note CM Note Notes: Pt admitted to hospital after fall on ice, resulting in a femur fracture. Pt is otherwise independent, PT/OT to eval. DC Plan: TBD Date Signed: 10/26/2018 10:16 AM Electronically Signed By:Vidhi Acosta RN [facility] Progress Note CM Note CM Note Notes: Met with pt re dc poc, PT/OT recommend rehab. Pt is agreeable and would like a referral sent to [facility] in [place] because her parents live there. CM faxed referral, they are checking pt's insurance and will have a bed available tomorrow. DC Plan: [facility] pending insurance auth Date Signed: 10/27/2018 03:17 PM Electronically Signed By:Vidhi Acosta RN [facility] CM Progress Note CM Note CM Note Notes: [facility], insurance auth recieved. Unfortunately, pt's blood sugars are too high today. Possible dc tomorrow. CM notified Nathalie, hopefully has bed tomorrow. DC Plan: [facility] Date Signed: 10/28/2018 02:07 PM Electronically Signed By:Vidhi Acosta RN Case Management Discharge Plan Note Case Management Discharge Discharge Order Complete? Answers: Yes Patient to Obtain Answers: Other Notes: [facility] Medications Transportation Arranged Answers: Other Notes: [facility] Transport will Pick (Date 10/29/2018 02:30 PM & Time) Faxed Final Orders Answers: Yes Agency/Facility Transfer Answers: Yes Report Printed & Faxed to Receiving Agency Family Notified Answers: Yes Notes: CM spoke on phone with father Discharge Comments Notes: Pt to discharge to [facility]. RN given number for report. No further CM needs noted at this time. Date Signed: 10/29/2018 02:39 PM Electronically Signed By:Adriana Patel Intervention Information
--- NOTE | 2018-10-29 14:40 | ASMTDCNOTE ---
Case Management Discharge Discharge Order Complete? Answers: Yes Patient to Obtain Answers: Other Notes: [facility] Transportation Arranged Answers: Other Notes: [facility] Transport will Pick (Date 10/29/2018 02:30 PM & Time) Faxed Final Orders Answers: Yes Agency/Facility Transfer Answers: Yes Report Printed & Faxed to Receiving Agency Family Notified Answers: Yes Notes: CM spoke on phone with father Discharge Comments Notes: Pt to discharge to [facility]. RN given number for report. No further CM needs noted at this time. Date Signed: 10/29/2018 02:39 PM Electronically Signed By:Adriana Patel
== END 2018-10-29 14:34 | DRG 482 ==
LOC: EDUNIT# → F3N 11:20
PROVIDERS: ADMIT Internal Medicine; ATTEND Internal Medicine
PROC: 0QSC04Z Reposition Left Lower Femur with Internal Fixation Device, Open Approach (ICD-10-PCS; principal; 2018-10-25 17:30)
DX: S72.402A Unspecified fracture of lower end of left femur, initial encounter for closed fracture (principal); W00.0XXA Fall on same level due to ice and snow, initial encounter; D64.9 Anemia, unspecified; I10 Essential (primary) hypertension; E11.9 Type 2 diabetes mellitus without complications; E03.9 Hypothyroidism, unspecified; F17.200 Nicotine dependence, unspecified, uncomplicated; F12.90 Cannabis use, unspecified, uncomplicated; E66.9 Obesity, unspecified; Z68.39 Body mass index [BMI] 39.0-39.9, adult; G47.30 Sleep apnea, unspecified; I25.10 Atherosclerotic heart disease of native coronary artery without angina pectoris; Z79.4 Long term (current) use of insulin
CPT/HCPCS: 96374; 97116-GP; 97161-GP; 97165-GO; 97530-GP; 97535-GO; C1713; J0690; J1100; J1170; J1815; J2250; J2405; J2710; J3010